=== PATIENT | male | born 1960 | race Caucasian/White ===

== ENCOUNTER 2023-07-11 15:50 | Emergency (ER) | payer OTHER, SELFPAY ==
[2023-07-11 15:54] VITALS: BP 146/96; PULSE 71; RESP 20; TEMP 36.5; O2SAT 95; BMI 48.8
--- NOTE | 2023-07-11 16:05 | ED.EAR1 ---
HPI - Ear Problem General Chief complaint: Ear Stated complaint: piece of ear piece stuck in ear Time Seen by Provider: 07/11/23 15:51 Source: patient Mode of arrival: walk-in History of Present Illness HPI Narrative: patient is a 63-year-old male presents wwith concerns of foreign body in the right ear. Patient states he was removing his hearing aid in the silicone applicator goes in the ear canal came dislodged. Patient's thought she saw it on the tip of his year and then pushed in. Patient states he has had a fullness sensation in his ears for the past few days and is also had a history of cerumen impaction. Denies any fevers or chills. Patient states the symptoms are affecting his PTSD. Patient appears in no distress, denies ear pain, denies fever or chills. MD Complaint: Denies ear pain Location: right ear Context: Denies recent illness Treatment prior to arrival: Reports none ( tried to remove. ) Related Data Previous Rx's Medication Instructions Recorded fluticasone propionate 50 2 spray intranasal DAILY #16 grams 07/11/23 mcg/actuation nasal spray,suspension (Flonase Allergy Relief) Allergies Allergy/AdvReac Type Severity Reaction Status Date / Time No Known Drug Allergies Allergy Verified 07/11/23 15:57 Review of Systems ROS Constitutional Denies: fever, chills or change in weight Ears, nose, mouth, and throat Denies: throat pain or neck pain Cardiovascular Denies: chest pain Respiratory Denies: shortness of breath or cough Gastrointestinal Denies: abdominal pain or nausea Musculoskeletal Denies: back pain or neck pain Integumentary/Breast Denies: rash or itching Neurological Denies: headache Psychiatric Denies: anxiety or mood swings Endocrine Denies: excessive urination Exam Narrative Exam Narrative: Nurses notes and vital signs reviewed and patient is not hypoxic. General: The patient appears well and in no apparent distress. Patient is resting comfortably on cart. Skin: Warm, dry, no pallor noted. No evidence of rash Head: Normocephalic, atraumatic. Neck: Supple, trachea mid-line, no tenderness, no lymphadenopathy Eye: Pupils are equal, round and reactive to light, EOMI Ears, Nose, Mouth, and Throat: TM are clear, normal light reflex,trace cerumen bilateral canals, no evidence of impaction. Tympanic membrane clearly visualized without evidence of foreign body. No auricle or tragal tenderness. Patient's cerumen was to the outermost one 3rd of the canal. Patient has slight dry skin to the antihelix. No evidence of erythema. oral mucosa is moist, no posterior oropharynx erythema or hypertrophy, uvula is mid-line Cardiovascular: Regular Rate and Rhythm Respiratory: Patient is in no distress, no accessory muscle use, lungs are clear to auscultation, no wheezing, rales or rhonchi. Neurological: A&O x4 Psychiatric: Cooperative Constitutional Vital Signs, click to edit/add: Last Vital Signs Temp 97.7 F 07/11/23 15:54 Pulse 71 07/11/23 15:54 Resp 07/11/23 15:54 BP 146/96 H 07/11/23 15:54 Pulse Ox 95 07/11/23 15:54 O2 Del Method Room Air 07/11/23 15:54 Course Vital Signs Vital signs: Vital Signs Temperature 97.7 F 07/11/23 15:54 Pulse Rate 71 07/11/23 15:54 Respiratory Rate 07/11/23 15:54 Blood Pressure 146/96 H 07/11/23 15:54 Pulse Oximetry 95 07/11/23 15:54 Oxygen Delivery Method Room Air 07/11/23 15:54 Temperature 97.7 F 07/11/23 15:54 Pulse Rate 71 07/11/23 15:54 Respiratory Rate 07/11/23 15:54 Blood Pressure 146/96 H 07/11/23 15:54 Pulse Oximetry 95 07/11/23 15:54 Oxygen Delivery Method Room Air 07/11/23 15:54 Medical Decision Making MDM Narrative Medical decision making narrative: patient presented with fear form body in the right ear canal, multiple inspections without evidence of foreign body. Discussed his ear fullness sensation recommend Flonase two sprays at night continue with his current hydroxyzine which she takes for anxiety. Also has ALLERGY component. We discussed follow-up to ENT, the patient given local but states he follows with the [place] clinic. We discussed the cerumen in his ears not requiring any irrigation or treatment. Patient requested that I remove what I could see and a curet was used to carefully remove the outer most portion with no evidence of abrasion on inspection after removal. Patient was appreciative and had no further concerns or questions. The patient is to followup with primary care physician in next 2-3 days or to return to the emergency department should any of the signs or symptoms worsen or new symptoms develop. Patient had questions answered. The patient agrees with the following Diagnosis and Treatment plan and the patient will be discharged home. Discharge Plan Discharge Chief Complaint: Ear Clinical Impression: Eustachian tube disorder, Foreign body of ear, Excessive cerumen in right ear canal Patient Disposition: Home, Self-Care Time of Disposition Decision: 16:07 Condition: Good Prescriptions / Home Meds: New fluticasone propionate [Flonase Allergy Relief] 50 mcg/actuation spray,suspension 2 spray intranasal DAILY Qty: 16 0RF Rx Instructions: administer into each nostril Instructions: Ear Foreign Body (ED) Stand Alone Forms: Portal Instructions Referrals: Kristina Moreno MD [Physician] - 1 week
== END 2023-07-11 16:18 | disposition home or self-care (01) ==
PROVIDERS: Emergency Provider Emergency Medicine
DX: H93.8X1 Other specified disorders of right ear (principal); H69.81 Other specified disorders of Eustachian tube, right ear; F43.10 Post-traumatic stress disorder, unspecified; F41.9 Anxiety disorder, unspecified; Z79.899 Other long term (current) drug therapy; H61.21 Impacted cerumen, right ear
CPT/HCPCS: 99283

== ENCOUNTER 2024-09-09 18:08 | Emergency (ER) | payer OTHER, SELFPAY ==
[2024-09-09] VITALS (19 sets, daily range): BP systolic 139; BP diastolic 86; PULSE 63–76; TEMP 36.8; O2SAT 97; BMI 48.8
--- NOTE | 2024-09-09 18:35 | XR_ITS ---
[address] [address] Patient Name: GERALDINE BUSTILLO MRN: [id number] date: 1960 Sex: M Assigned Patient Location: ER Current Patient Location: ED.MAIN Accession/Order Number: [id number] Exam Date: 09/09/2024 18:45 Report Date: 09/09/2024 19:46 At the request of: GARY CARRASCO Procedure: XR chest 2V EXAM: XR chest 2V HISTORY: chest pain COMPARISON: 07/23/2022 TECHNIQUE: Upright PA and lateral chest x-ray FINDINGS: The heart is not enlarged and the vasculature is not distended. No acute infiltrate, effusion or pneumothorax is identified. The right-sided PICC line has been removed. The osseous structures are grossly intact. XR/XR chest 2V IMPRESSION: No acute infiltrate or evidence of cardiac decompensation. Except for removal of the PICC line, the overall appearance of the chest is essentially unchanged. Electronically authenticated by: JAMARCUS ALEJO Date: 09/09/2024 19:46
--- NOTE | 2024-09-09 18:35 | ECG_ITS ---
[facility] Test Date: 2024-09-09 Pat Name: GERALDINE BUSTILLO Department: Room: - Gender: Male Director Mba: : 1960 Requested By: JOE HAQ Order Number: [id number] Reading MD: JOE HAQ Measurements Intervals [place] Rate: 66 P: 35 MS: 182 QRS: 48 QRSD: 92 T: 46 QT: 414 QTc: 427 Interpretive Statements 1100 Sinus rhythm 8102 Low QRS voltage in chest leads 9120 atypical ECG No previous ECG available for comparison Electronically Signed On 09-10-2024 5:03:13 EST by JOE HAQ
--- NOTE | 2024-09-09 18:38 | ED.GENADUL1 ---
HPI HPI - General Adult General Chief complaint: Chest Pain Stated complaint: chest pain, flu shot today Time Seen by Provider: 09/09/24 18:28 Source: patient and family Mode of arrival: walk-in Limitations: no limitations History of Present Illness HPI narrative: Patient presented to the emergency department for evaluation of chest pain. Patient states approximately 90 minutes ago he had acute onset of chest pain. Patient states it was in the central chest, felt like a stabbing sensation. Patient states that he felt the same time in the right side of his neck as well as the left side of his neck. States it felt like a stabbing sensation. No radiation to the back, no shortness of breath, nausea, vomiting, diaphoresis. No radiation through the back around to the back. No pain in the stomach. Patient states that he had a flu shot today and thought it was related to that. Patient states that by now the pain is fully resolved, it was constantly there for approximately 90 minutes. Nothing made it better or worse. Patient states that he did take 2 baby aspirin today. No other complaints at this time. Patient states that he has no family history of cardiac disease, does not drink, smoke, do any drugs, no family history of cardiac disease of unknown or first-degree relatives. States he has a history of lymphoma and a brain tumor, he was cleared 2 years ago. Related Data Home Medications ?Medication ?Instructions ?Recorded ?Confirmed fluoxetine 90 mg capsule,delayed 90 mg PO DAILY 09/09/24 09/09/24 release omeprazole 40 mg capsule,delayed 40 mg PO DAILY 09/09/24 09/09/24 release propranolol 20 mg tablet 20 mg PO DAILY 09/09/24 09/09/24 trazodone 150 mg tablet 150 mg PO DAILY 09/09/24 09/09/24 Previous Rx's ?Medication ?Instructions ?Recorded fluticasone propionate 50 2 spray intranasal DAILY #16 grams 07/11/23 mcg/actuation nasal spray,suspension (Flonase Allergy Relief) Allergies Allergy/AdvReac Type Severity Reaction Status Date / Time No Known Drug Allergies Allergy Verified 07/11/23 15:57 Opioid HPI Opioid Management Most Recent Opioid Data: No Data to Display Review of Systems ROS Narrative Negative unless otherwise stated in HPI PFSH PFSH Medical History (Updated 09/09/24 @ 18:41 by Estrada Hua MD) Depression ?F32.A - Depression, unspecified (ICD-10) Occasional tremors ?R25.1 - Tremor, unspecified (ICD-10) Lymphoma in remission ?C85.9A - Non-Hodgkin lymphoma, unspecified, in remission (ICD-10) Surgical History (Updated 09/09/24 @ 18:26 by Anneliese Loco RN) History of ankle surgery ?Z98.890 - Other specified postprocedural states (ICD-10) Social History Little interest or pleasure in doing things: not at all Feeling down, depressed, or hopeless: not at all Exam Narrative Exam Narrative: General: NAD, AAOx3, no distress Neck: No carotid bruit, no tenderness or pain was elicited Respiratory: respiratory effort normal, speaks in full sentences, no tripod position, no accessory muscle use. Lungs clear to auscultation without rhonchi, wheezes, rales, reproducible left chest wall pain with palpation over the mid sternum Cardiac: Regular rate and rhythm, no edema, regular s1/s2, no m/g/r Abdomen: Soft, ND/NT. No evidence of fluid wave. No pulsatile masses on exam, rebound tenderness, Hilario sign or pain over Mcburney's point. Constitutional Vital Signs, click to edit/add: Last Vital Signs Temp 98.3 F 09/09/24 18:17 Pulse 69 09/09/24 18:17 Resp 20 09/09/24 18:17 BP 139/86 09/09/24 18:17 Pulse Ox 97 09/09/24 18:17 O2 Del Method Room Air 09/09/24 18:17 Course Vital Signs Vital signs: Vital Signs Temperature 98.3 F 09/09/24 18:17 Pulse Rate 69 09/09/24 18:17 Respiratory Rate 20 09/09/24 18:17 Blood Pressure 139/86 09/09/24 18:17 Pulse Oximetry 97 09/09/24 18:17 Oxygen Delivery Method Room Air 09/09/24 18:17 Temperature 98.3 F 09/09/24 18:17 Pulse Rate 69 09/09/24 18:17 Respiratory Rate 20 09/09/24 18:17 Blood Pressure 139/86 09/09/24 18:17 Pulse Oximetry 97 09/09/24 18:17 Oxygen Delivery Method Room Air 09/09/24 18:17 Medical Decision Making [facility] Narrative Medical decision making narrative: [facility] Patient with history as above presented with chest pain. History obtained from patient. Patient was nontoxic, stable. Ambulatory. Exam as above. EKG reviewed. Labs reviewed. Independently reviewed imaging. Reviewed external records. Differential diagnosis considered. Overall presentation is consistent with atypical chest pain 1900 patient was signed out at normal change of shift pending full patient Discharge Plan Discharge Patient Disposition: Still a Patient
[2024-09-09] MEDS: ASPIRIN 81 MG TAB.CHEW 162 MG PO (19:04)
[2024-09-09 19:18] LABS: Basophils Percent Auto 0.5 % (0.2-2.0); Eosinophils Absolute Auto 0.2 10^3/uL (0.0-0.7); Eosinophils Percent Auto 2.4 % (0.9-7.0); Hematocrit 42.1 % (42.0-54.0); Hemoglobin 14.1 g/dL (14.0-18.0); Immature Granulocytes Abs Auto 0.04 10^3/uL (0.00-0.03); Immature Granulocytes Pct Auto 0.5 % (0.0-0.5); Lymphocytes Absolute Auto 2.3 10^3/uL (1.2-3.8); Lymphocytes Percent Auto 26.3 % (20.5-60.0); Mean Corpuscular HGB Conc 33.5 g/dL (29.9-35.2); Mean Corpuscular Hemoglobin 30.9 pg (25.9-34.0); Mean Corpuscular Volume 92.1 fL (80.0-94.0); Mean Platelet Volume 9.1 fL (9.5-13.5); Monocytes Absolute Auto 0.8 10^3/uL (0.3-0.8); Monocytes Percent Auto 9.4 % (1.7-12.0); Neutrophils Absolute Auto 5.4 10^3/uL (1.4-6.5); Neutrophils Percent Auto 60.9 % (43.0-75.0); Platelet Count 241 10^3/uL (150-450); Red Blood Count 4.57 10^6/uL (4.70-6.10); White Blood Count 8.8 10^3/uL (4.0-11.0)
[2024-09-09 19:31] LABS: Anion Gap 15.4; BUN Creatinine Ratio 14.4; Calcium 9.4 mg/dL (8.5-10.1); Carbon Dioxide 23.9 mmol/L (21.0-32.0); Chloride 109 mmol/L (98-107); Estimated GFR (African America >60 (>=60 mL/min/1.73m^2); Estimated GFR (Non-African Ame >60 (>=60 mL/min/1.73m^2); Glucose 141 mg/dL (74-106); Potassium 4.3 mmol/L (3.5-5.1); Sodium 144 mmol/L (136-145); Troponin I High Sensitivity 5.9 pg/mL (4.0-76.1)
[2024-09-09 20:58] LABS: Troponin I High Sensitivity 6.6 pg/mL (4.0-76.1)
--- NOTE | 2024-09-09 21:05 | ED.CHESTPAI1 ---
HPI - Chest Pain General Chief Complaint: Chest Pain Stated Complaint: chest pain, flu shot today Time Seen by Provider: 09/09/24 18:28 Source: patient and family Mode of arrival: walk-in Limitations: no limitations History of Present Illness HPI narrative: 64-year-old male presented to the emergency department and was initially seen by Dr. Hua and signed out to me after discussing the case with him thoroughly. Please see his full history and physical exam. Related Data Home Medications ?Medication ?Instructions ?Recorded ?Confirmed fluoxetine 90 mg capsule,delayed 90 mg PO DAILY 09/09/24 09/09/24 release omeprazole 40 mg capsule,delayed 40 mg PO DAILY 09/09/24 09/09/24 release propranolol 20 mg tablet 20 mg PO DAILY 09/09/24 09/09/24 trazodone 150 mg tablet 150 mg PO DAILY 09/09/24 09/09/24 Previous Rx's ?Medication ?Instructions ?Recorded fluticasone propionate 50 2 spray intranasal DAILY #16 grams 07/11/23 mcg/actuation nasal spray,suspension (Flonase Allergy Relief) Allergies Allergy/AdvReac Type Severity Reaction Status Date / Time No Known Drug Allergies Allergy Verified 07/11/23 15:57 [facility] Medical History (Updated 09/09/24 @ 18:41 by Estrada Hua MD) Depression ?F32.A - Depression, unspecified (ICD-10) Occasional tremors ?R25.1 - Tremor, unspecified (ICD-10) Lymphoma in remission ?C85.9A - Non-Hodgkin lymphoma, unspecified, in remission (ICD-10) Surgical History (Updated 09/09/24 @ 18:26 by Anneliese Loco RN) History of ankle surgery ?Z98.890 - Other specified postprocedural states (ICD-10) Social History Little interest or pleasure in doing things: not at all Feeling down, depressed, or hopeless: not at all Exam Constitutional Vital Signs, click to edit/add: Last Vital Signs Temp 98.3 F 09/09/24 18:17 Pulse 63 09/09/24 19:01 Resp 15 09/09/24 19:01 BP 139/86 09/09/24 18:20 Pulse Ox 97 09/09/24 18:20 O2 Del Method Room Air 09/09/24 18:17 Course Vital Signs Vital signs: Vital Signs Temperature 98.3 F 09/09/24 18:17 Pulse Rate 69 09/09/24 18:17 Respiratory Rate 20 09/09/24 18:17 Blood Pressure 139/86 09/09/24 18:17 Pulse Oximetry 97 09/09/24 18:17 Oxygen Delivery Method Room Air 09/09/24 18:17 Temperature 98.3 F 09/09/24 18:17 Pulse Rate 63 09/09/24 19:01 Respiratory Rate 15 09/09/24 19:01 Blood Pressure 139/86 09/09/24 18:20 Pulse Oximetry 97 09/09/24 18:20 Oxygen Delivery Method Room Air 09/09/24 18:17 MDM - Chest Pain MDM Narrative Medical decision making narrative: His workup is negative including 2 sets of troponin and he remains asymptomatic. He is able to be discharged home. Follow-up with PCP. Differential Diagnosis Differential diagnosis: Likely pneumothorax, unstable angina pectoris, atypical chest pain, st elevation myocardial infarction and chest pain Lab Data Attestation: I reviewed the patient's lab results. Labs: Lab Results 09/09/24 09/09/24 Range/Units 18:36 20:29 WBC 8.8 (4.0-11.0) 10^3/uL RBC 4.57 L (4.70-6.10) 10^6/uL Hgb 14.1 (14.0-18.0) g/dL Hct 42.1 (42.0-54.0) % MCV 92.1 (80.0-94.0) fL MCH 30.9 (25.9-34.0) pg MCHC 33.5 (29.9-35.2) g/dL RDW 15.0 (11.0-15.0) % Plt Count 241 (150-450) 10^3/uL MPV 9.1 L (9.5-13.5) fL Neut % (Auto) 60.9 (43.0-75.0) % Lymph % (Auto) 26.3 (20.5-60.0) % [place] % (Auto) 9.4 (1.7-12.0) % Eos % (Auto) 2.4 (0.9-7.0) % Baso % (Auto) 0.5 (0.2-2.0) % Neut # (Auto) 5.4 (1.4-6.5) 10^3/uL Lymph # (Auto) 2.3 (1.2-3.8) 10^3/uL [place] # (Auto) 0.8 (0.3-0.8) 10^3/uL Eos # (Auto) 0.2 (0.0-0.7) 10^3/uL Baso # (Auto) 0.0 (0.0-0.1) 10^3/uL Abs Immat Gran (auto) 0.04 H (0.00-0.03) 10^3/uL Imm/Tot Granulo (auto) 0.5 (0.0-0.5) % Sodium 144 (136-145) mmol/L Potassium 4.3 (3.5-5.1) mmol/L Chloride 109 H (98-107) mmol/L Carbon Dioxide 23.9 (21.0-32.0) mmol/L Anion Gap 15.4 BUN 13.0 (7.0-18.0) mg/dL Creatinine 0.90 (0.70-1.30) mg/dL Est GFR ( Amer) >60 (>=60 mL/min/1.73m^2) Est GFR (Non-Af Amer) >60 (>=60 mL/min/1.73m^2) BUN/Creatinine Ratio 14.4 Glucose 141 H (74-106) mg/dL Calcium 9.4 (8.5-10.1) mg/dL Troponin I High Sens 5.9 6.6 (4.0-76.1) pg/mL Imaging Data Chest x-ray: Radiologist's impression: ITS Impressions Chest X-Ray 09/09/24 18:35 IMPRESSION: No acute infiltrate or evidence of cardiac decompensation. Except for removal of the PICC line, the overall appearance of the chest is essentially unchanged. Electronically authenticated by: JAMARCUS ALEJO Date: 09/09/2024 19:46 ECG Data Attestation: I personally reviewed and interpreted this ECG as follows: (EKG on my interpretation shows normal sinus rhythm with a rate of 66 and no acute change.) Heart Score History: Slightly/Non-Suspicious ECG: Normal Age: >45-<65 years Risk Factors: 1 or 2 Risk Factors Troponin: <Normal Limit Total Heart Score Recommendations & Risks:: 2 Discharge Plan Discharge Chief Complaint: Chest Pain Clinical Impression: Chest pain Patient Disposition: Home, Self-Care Time of Disposition Decision: 21:04 Condition: Good Mode of Transportation: Private Vehicle Prescriptions / Home Meds: No Action fluticasone propionate [Flonase Allergy Relief] 50 mcg/actuation spray,suspension 2 spray intranasal DAILY Qty: 16 0RF Rx Instructions: administer into each nostril propranolol 20 mg tablet 20 mg PO DAILY trazodone 150 mg tablet 150 mg PO DAILY omeprazole 40 mg capsule,delayed release(DR/EC) 40 mg PO DAILY fluoxetine 90 mg capsule,delayed release(DR/EC) 90 mg PO DAILY Print Language: Icelandic Instructions: Chest Pain (ED) Referrals: Physician,Non-Staff, MD [Primary Care Provider] - 1 week
== END 2024-09-09 21:13 | disposition home or self-care (01) ==
PROVIDERS: Emergency Medicine; Emergency Provider Emergency Medicine
DX: R07.9 Chest pain, unspecified (principal); Z85.72 Personal history of non-Hodgkin lymphomas
CPT/HCPCS: 36415; 71046; 80048; 84484; 85025; 93005; 99285

== ENCOUNTER 2024-12-11 21:16 | Emergency (ER) | payer OTHER, SELFPAY ==
[2024-12-11 21:19] VITALS: BP 151/86; PULSE 63; TEMP 36.6; O2SAT 96; BMI 51.5
--- NOTE | 2024-12-11 21:31 | ECG_ITS ---
[facility] Test Date: 2024-12-11 Pat Name: GERALDINE BUSTILLO Department: Room: - Gender: Male [employer]: : 1960 Requested By: Order Number: [id number] Reading MD: GILDA HALL Measurements Intervals [place] Rate: 56 P: 61 [place]: 180 QRS: 49 QRSD: 98 T: 46 QT: 420 QTc: 410 Interpretive Statements 1100 Sinus rhythm 9110 normal ECG Compared to ECG 09/09/2024 18:22:30 No significant changes Electronically Signed On 12-12-2024 16:34:49 EST by GILDA HALL
--- NOTE | 2024-12-11 21:31 | CT_ITS ---
The [address] [address] Patient Name: GERALDINE BUSTILLO MRN: [id number] date: 1960 Sex: M Assigned Patient Location: ER Current Patient Location: Accession/Order Number: [id number] Exam Date: 12/11/2024 23:30 Report Date: 12/12/2024 01:29 At the request of: TORSTEN SANCHEZ Procedure: CT abdomen pelvis w con EXAM: CT abdomen pelvis w con HISTORY: Abdominal pain COMPARISON: CT chest, abdomen, and pelvis examination dated 04/05/2024. TECHNIQUE: Axial CT images through the abdomen and pelvis were obtained after the intravenous administration of contrast. Coronal and sagittal reformats were obtained. Dose reduction techniques were achieved by using automated exposure control and/or adjustment of mA and/or kV according to patient size and/or use of iterative reconstruction technique. FINDINGS: There is mild left basilar atelectasis. Abdomen: The liver and spleen enhance homogeneously without focal lesion. There is no intra or extrahepatic biliary duct dilatation. The gallbladder is unremarkable. There is a left renal cyst. There is a 0.3 cm nonobstructive right renal calculus. The pancreas, adrenal glands, and bowel loops, including the appendix, are unremarkable. There is no mesenteric or retroperitoneal lymphadenopathy. Pelvis: The bladder and rectum are unremarkable. There is no iliac or inguinal lymphadenopathy. There is prostatomegaly. There is mild atherosclerotic disease. Bone windows show no aggressive osseous lesions. CT/CT abdomen pelvis w con IMPRESSION: 1. No specific etiology identified to explain the patient's abdominal pain. 2. Nonobstructive right renal calculus. 3. Normal appendix. 4. Prostatomegaly. Electronically authenticated by: Aditya GRANADOS Date: 12/12/2024 01:29
--- NOTE | 2024-12-11 21:33 | ED.ABDPAIN1 ---
HPI - Abdominal Pain General Chief Complaint: Abdominal Pain Stated Complaint: ABDOMINAL PAIN, SIDE BLOATING Time Seen by Provider: 12/11/24 21:25 Source: patient Mode of arrival: walk-in Limitations: no limitations History of Present Illness HPI narrative: Patient is a 64-year-old male with a remote history of lymphoma in remission who presents to the ER for evaluation of left-sided abdominal pain and bloating that began today. He states he has a longstanding history for several years of similar symptoms since he had chemotherapy related to the lymphoma. He does not currently receive any chemotherapy or radiation and has not for several years. He states today he has been nauseous with no vomiting. He reports some loose stool but he did take prune juice earlier today. He used Bentyl prior to arrival with some improvement but reports significant pressure in the left side of the abdomen rating to the left flank. He has not had any fevers or upper respiratory symptoms. He denies any urinary symptoms. He is concerned he may have a hernia in the left abdomen causing the pressure and swelling. He states he has had a previous endoscopy, colonoscopy and MRI of his abdomen related to the [facility] Related Data Home Medications ?Medication ?Instructions ?Recorded ?Confirmed fluoxetine 90 mg capsule,delayed 100 mg PO DAILY 09/09/24 12/11/24 release omeprazole 40 mg capsule,delayed 40 mg PO DAILY 09/09/24 12/11/24 release propranolol 20 mg tablet 20 mg PO DAILY 09/09/24 12/11/24 trazodone 150 mg tablet 150 mg PO DAILY 09/09/24 12/11/24 hydroxyzine HCl 25 mg tablet 25 mg PO BID PRN anxiety 12/11/24 12/11/24 melatonin 3 mg capsule 6 mg PO DAILY PRN sleep 12/11/24 12/11/24 Previous Rx's ?Medication ?Instructions ?Recorded fluticasone propionate 50 2 spray intranasal DAILY #16 grams 07/11/23 mcg/actuation nasal spray,suspension (Flonase Allergy Relief) Allergies Allergy/AdvReac Type Severity Reaction Status Date / Time No Known Drug Allergies Allergy Verified 12/11/24 21:25 Review of Systems ROS Constitutional Denies: fever or chills Ears, nose, mouth, and throat Denies: throat pain or nasal congestion Cardiovascular Denies: chest pain Respiratory Denies: cough Gastrointestinal Reports: abdominal pain, nausea and diarrhea; Denies: vomiting or blood in stool Integumentary/Breast Denies: rash Neurological Denies: numbness in extremities or weakness in extremities Hematologic/Lymphatic Denies: easy bruising or easy bleeding PFSH [facility] Medical History (Updated 12/11/24 @ 21:36 by ERIC Sun) Depression ?F32.A - Depression, unspecified (ICD-10) Occasional tremors ?R25.1 - Tremor, unspecified (ICD-10) Lymphoma in remission ?C85.9A - Non-Hodgkin lymphoma, unspecified, in remission (ICD-10) Surgical History (Updated 09/09/24 @ 18:26 by Anneliese Loco RN) History of ankle surgery ?Z98.890 - Other specified postprocedural states (ICD-10) Social History Little interest or pleasure in doing things: not at all Feeling down, depressed, or hopeless: not at all Exam Narrative Exam Narrative: Gen.: Awake, alert, in no distress Head: Normocephalic, atraumatic ENT: Moist mucous membranes Respiratory: No respiratory distress, lungs clear bilaterally Cardio: Regular rate and rhythm Gastrointestinal: Abdomen is soft, obese and tender to palpation of the left upper quadrant. No palpable hernia. No guarding or rebound. Extremities: Moves extremities equally Psych: Normal mood and affect Neuro: No focal neuro deficit Skin: Warm, dry, intact Constitutional Vital Signs, click to edit/add: Last Vital Signs Temp 97.9 F 12/11/24 21:19 Pulse 63 12/11/24 21:19 Resp 18 12/11/24 21:19 BP 151/86 H 12/11/24 21:19 Pulse Ox 96 12/11/24 21:19 O2 Del Method Room Air 12/11/24 21:19 Course Vital Signs Vital signs: Vital Signs Temperature 97.9 F 12/11/24 21:19 Pulse Rate 63 12/11/24 21:19 Respiratory Rate 18 12/11/24 21:19 Blood Pressure 151/86 H 12/11/24 21:19 Pulse Oximetry 96 12/11/24 21:19 Oxygen Delivery Method Room Air 12/11/24 21:19 Temperature 97.9 F 12/11/24 21:19 Pulse Rate 63 12/11/24 21:19 Respiratory Rate 18 12/11/24 21:19 Blood Pressure 151/86 H 12/11/24 21:19 Pulse Oximetry 96 12/11/24 21:19 Oxygen Delivery Method Room Air 12/11/24 21:19 MDM - Abdominal Pain MDM Narrative Medical decision making narrative: 2134: Patient was evaluated, labs and CT ordered with EKG, urine testing and medications for comfort. Diagnostics are all pending at this time and case is turned over to attending physician for reevaluation and disposition. SHARED APC VISIT, PHYSICIAN ATTESTATION: [id number] I performed a substantive part of the MDM during the patient?s E/M visit. I personally evaluated and examined the patient. I personally made or approved the documented management plan and acknowledge its risk of complications. Medical Records Attestation: I reviewed the patient's medical records. Lab Data Attestation: I reviewed the patient's lab results. Discharge Plan Discharge Chief Complaint: Abdominal Pain Clinical Impression: Abdominal pain Patient Disposition: Still a Patient Prescriptions / Home Meds: No Action fluticasone propionate [Flonase Allergy Relief] 50 mcg/actuation spray,suspension 2 spray intranasal DAILY Qty: 16 0RF Rx Instructions: administer into each nostril propranolol 20 mg tablet 20 mg PO DAILY trazodone 150 mg tablet 150 mg PO DAILY omeprazole 40 mg capsule,delayed release(DR/EC) 40 mg PO DAILY fluoxetine 90 mg capsule,delayed release(DR/EC) 100 mg PO DAILY melatonin 3 mg capsule 6 mg PO DAILY PRN (Reason: sleep) hydroxyzine HCl 25 mg tablet 25 mg PO BID PRN (Reason: anxiety) Print Language: Yoruba Referrals: Physician,Non-Staff, MD [Primary Care Provider] - 1 week
[2024-12-11] MEDS: HYDROMORPHONE HCL 0.5 MG/0.5 ML SYRINGE IV (21:59)
[2024-12-11] MEDS: ONDANSETRON PF 4 MG/2 ML VIAL IV (21:59)
[2024-12-11] MEDS: FAMOTIDINE/PF 20 MG/2 ML VIAL IV (21:59)
[2024-12-11 22:00] LABS: Basophils Absolute Auto 0.1 10^3/uL (0.0-0.1); Basophils Percent Auto 0.6 % (0.2-2.0); Eosinophils Absolute Auto 0.1 10^3/uL (0.0-0.7); Eosinophils Percent Auto 1.6 % (0.9-7.0); Hematocrit 42.6 % (42.0-54.0); Hemoglobin 14.7 g/dL (14.0-18.0); Immature Granulocytes Abs Auto 0.02 10^3/uL (0.00-0.03); Immature Granulocytes Pct Auto 0.2 % (0.0-0.5); Lymphocytes Absolute Auto 2.1 10^3/uL (1.2-3.8); Lymphocytes Percent Auto 25.9 % (20.5-60.0); Mean Corpuscular HGB Conc 34.5 g/dL (29.9-35.2); Mean Corpuscular Hemoglobin 31.4 pg (25.9-34.0); Mean Platelet Volume 9.4 fL (9.5-13.5); Monocytes Absolute Auto 0.7 10^3/uL (0.3-0.8); Neutrophils Absolute Auto 5.1 10^3/uL (1.4-6.5); Neutrophils Percent Auto 62.7 % (43.0-75.0); Platelet Count 232 10^3/uL (150-450); Red Blood Count 4.68 10^6/uL (4.70-6.10); Red Cell Distribution Width 14.4 % (11.0-15.0); White Blood Count 8.2 10^3/uL (4.0-11.0)
[2024-12-11 22:13] LABS: Prothrombin Time 10.6 sec (9.0-11.6)
[2024-12-11 22:17] LABS: Anion Gap 13.9
[2024-12-11 22:19] LABS: Alanine Aminotransferase 45 U/L (16-63); Albumin Level 3.6 g/dL (3.4-5.0); Alkaline Phosphatase 64 U/L (46-116); Aspartate Amino Transferase 30 U/L (15-37); BUN Creatinine Ratio 11.8; Bilirubin Total 0.4 mg/dL (0.2-1.0); Calcium 9.8 mg/dL (8.5-10.1); Carbon Dioxide 25.4 mmol/L (21.0-32.0); Chloride 103 mmol/L (98-107); Estimated GFR (African America >60 (>=60 mL/min/1.73m^2); Estimated GFR (Non-African Ame >60 (>=60 mL/min/1.73m^2); Globulin 3.5 g/dL; Glucose 109 mg/dL (74-106); Lactate/Lactic Acid 1.2 mmol/L (0.4-2.0); Potassium 4.3 mmol/L (3.5-5.1); Sodium 138 mmol/L (136-145); Total Protein 7.1 g/dL (6.4-8.2); Troponin I High Sensitivity 6.7 pg/mL (4.0-76.1)
[2024-12-11 22:29] LABS: Bilirubin Urine NEGATIVE (NEGATIVE); Blood Urine SMALL (NEGATIVE); Clarity Urine CLEAR (CLEAR); Color Urine YELLOW (YELLOW); Glucose Urine UA NEGATIVE (NEGATIVE); Ketones Urine 15 mg/dL (NEGATIVE); Leukocyte Esterase Urine NEGATIVE (NEGATIVE); Nitrite Urine NEGATIVE (NEGATIVE); Protein Urine TRACE mg/dL (NEG/TRACE); Specific Gravity Urine 1.025 (1.005-1.025)
[2024-12-11 22:38] LABS: Bacteria Urine TRACE #/HPF (NONE SEEN); Cast Seen? SEEN #/LPF (NONE SEEN); Crystals Seen? None Seen #/HPF (None Seen); Hyaline Casts Urine RARE; Mucus Urine MODERATE (NONE SEEN); RBC Urine 0-2 #/HPF (0-2); Squamous Epithelial Cell Urine FEW #/LPF (NONE/RARE); Urine Culture Indicated NO
[2024-12-11 23:06] VITALS: BP 128/83; PULSE 68; O2SAT 94
[2024-12-12 00:20] VITALS: BP 130/64; PULSE 53; O2SAT 95
[2024-12-12 01:51] VITALS: BP 138/72; PULSE 55; O2SAT 97
== END 2024-12-12 01:55 | disposition home or self-care (01) ==
PROVIDERS: Physician Assistant; Emergency Provider Student in an Organized Health Care Education/Training Program
DX: R10.9 Unspecified abdominal pain (principal); G89.29 Other chronic pain; K43.9 Ventral hernia without obstruction or gangrene; C85.9A Non-Hodgkin lymphoma, unspecified, in remission; Z92.21 Personal history of antineoplastic chemotherapy
CPT/HCPCS: 36415; 74177; 80053; 81001; 83605; 83690; 84484; 85025; 85610; 93005; 96374; 96375; 99285; J1171; J2405; J3490; Q9967

== ENCOUNTER 2025-04-06 13:36 | Outpatient (RCR) | payer MEDICARE, SELFPAY | END 2025-05-18 14:03 | disposition home or self-care (01) | LOC: PT 13:36 | PROVIDERS: Visit Provider Family Medicine | DX: R26.89 Other abnormalities of gait and mobility (principal) | CPT/HCPCS: 97110; 97112; 97163 ==

== ENCOUNTER 2025-06-17 18:36 | Inpatient (IN) | payer MEDICARE, SELFPAY ==
[2025-06-17] VITALS (8 sets, daily range): BP systolic 110–153; BP diastolic 77–83; PULSE 75–108; TEMP 37.3–38.3; O2SAT 94–96; BMI 48.5; BMI 50.4
--- NOTE | 2025-06-17 18:46 | ECG_ITS ---
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
--- NOTE | 2025-06-17 19:34 | ED_ITS ---
HPI HPI - General Adult General Chief complaint: Fall Stated complaint: WEAKNESS Time Seen by Provider: 06/17/25 19:27 Source: patient Mode of arrival: ambulance Limitations: no limitations History of Present Illness HPI narrative: past history of lymphoma. Believes he is in remission. Has follow up appointment next week with oncology. Chronic abdominal pain for at least the past 2 years treated with gasx and bentyl. abdominal pain is mild now. Ill past 3 days with weakness. No definite fever. Seen by PCP today and diagnosed with UTI. Admits to urinary frequency and urgency and not able to hold his urine. 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 He got home from his PCP appointment and slipped down to the floor. No injury but not able to get up and brought here by Squad. No nausea or vomiting. No flank pain or chills Related Data Home Medications ?Medication ?Instructions ?Recorded ?Confirmed omeprazole 40 mg capsule,delayed 40 mg PO DAILY 06/17/25 release propranolol 20 mg tablet 20 mg PO Q12H 09/09/2406/17 trazodone 150 mg tablet 150 mg PO DAILY 09/09/24 hydroxyzine HCl 25 mg tablet 25 mg PO BID PRN anxiety 12/11/24 06/17/25 melatonin 3 mg capsule 6 mg PO DAILY sleep 12/11/24 06/18/25 fluoxetine 40 mg capsule 80 mg PO DAILY 06/18/2505/28 fluticasone propionate 50 2 spray intranasal DAILY PRN 06/18/25 06/18/25 mcg/actuation nasal allergy symptoms spray,suspension (Flonase Allergy Relief) Allergies Allergy/AdvReac Type Severity Reaction Status Date / Time No Known Drug Allergies Allergy Verified 06/17/25 18:41 Opioid HPI Opioid Management Most Recent Opioid Data: Last Pain Scale 0 Today, 18:13 Last Pain Assessment 06/17/25, 23:00 Last MAR Pain Assessment 06/18/25, 01:13 Last ORT Total Score 0 06/17/25, 23:00 Last ORT Risk Category Low Risk 06/17/25, 23:00 Review of Systems ROS Status of ROS 10 or more systems reviewed and unremark able except as noted in history and below [facility] Medical History (Updated 06/19/25 @ 19:20 by Rivera Whitney MD) Depression ?F32.A - Depression, unspecified (ICD-10) Occasional tremors ?R25.1 - Tremor, unspecified (ICD-10) Lymphoma in remission ?C85.9A - Non-Hodgkin lymphoma, unspecified, in remission (ICD-10) Surgical History History of ankle surgery ?Z98.890 - Other specified postprocedural states (ICD-10) Family History (Updated 06/18/25 @ 00:48 by Beau Whitaker, RN) Father Cancer of prostate Sister Cancer of breast, female Social History Highest level of school completed/degree received: some college, no degree Little interest or pleasure in doing things: not at all Feeling down, depressed, or hopeless: not at all Exam Constitutional Vital Signs, click to edit/add: Last Vital Signs Temp 97.6 F 06/19/25 16:00 Pulse 58 L 06/19/25 16:00 Resp 18 06/19/25 16:00 BP 111/69 06/19/25 16:00 Pulse Ox 94 L 06/19/25 16:00 O2 Del Method Room Air 06/19/25 16:00 O2 Flow Rate 2 06/18/25 07:46 Common normals: no apparent distress, oriented x3, no limitations, healthy appearing, alert and well nourished [facility] Common normals: normocephalic and head/scalp atraumatic Eye Common normals: PERRL, EOMs intact bilaterally and conjunctivae normal Respiratory Common normals: normal respiratory effort, no retractions, no use of accessory muscles and clear to auscultation bilaterally Cardio Common normals: regular rate, regular rhythm, S1 normal heart sound and S2 normal heart sound GI Common normals: Normal to inspection, nondistended, normoactive bowel sounds present, soft to palpation and non-tender Extremity Common normals: normal to inspection and full ROM Neuro Common normals: oriented x3, CN's II-XII intact bilaterally, moves all extremities and no focal motor deficits Psych Appearance: grossly normal Course Vital Signs Vital signs: Vital Signs Temperature 99.1 F 06/17/25 18:41 Pulse Rate 108 H 06/17/25 18:41 Respiratory Rate 24 H 06/17/25 18:41 Blood Pressure 153/83 H 06/17/25 18:41 Pulse Oximetry 94 L 06/17/25 18:41 Temperature 97.6 F 06/19/25 16:00 Pulse Rate 58 L 06/19/25 16:00 Respiratory Rate 18 06/19/25 16:00 Blood Pressure 111/69 06/19/25 16:00 Pulse Oximetry 94 L 06/19/25 16:00 Oxygen Delivery Method Room Air 06/19/25 16:00 Oxygen Delivery Flow Rate 2 06/18/25 07:46 Medical Decision Making MDM Narrative Medical decision making narrative: morbidly obese male with past history of lymphoma. Presents with gen weakness. At home slipped down to the floor and not able to get up. Brought to ER by squad. Workup remarkable for sepsis and UTI. Patient hydrated in the department and given antibiotics. Discussed with the hospitalist and patient accepted for admission Lab Data Labs: Lab Results 06/17/25 06/17/25 Range/Units 19:55 20:04 WBC 18.0 H (4.0-11.0) 10^3/uL RBC 4.84 (4.70-6.10) 10^6/uL Hgb 15.2 (14.0-18.0) g/dL Hct 43.5 (42.0-54.0) % MCV 89.9 (80.0-94.0) fL MCH 31.4 (25.9-34.0) pg MCHC 34.9 (29.9-35.2) g/dL RDW 14.2 (11.0-15.0) % Plt Count 199 (150-450) 10^3/uL MPV 9.8 (9.5-13.5) fL Seg Neuts % (Manual) 85.0 H (43.0-75.0) Lymphocytes % (Manual) 6.0 L (20.5-60.0) % Monocytes % (Manual) 9.0 (1.7-12.0) % Eosinophils % (Manual) 0.0 L (0.9-7.0) % Basophils % (Manual) 0.0 L (0.2-2.0) % Neutrophils # (Manual) 15.30 H (1.4-6.5) 10^3/uL Lymphocytes # (Manual) 1.08 L (1.20-3.80) 10^3/uL Monocytes # (Manual) 1.62 H (0.30-0.80) 10^3/uL Eosinophils # (Manual) 0.00 (0.00-0.70) 10^3/uL Basophils # (Manual) 0.00 (0.00-0.10) 10^3/uL Sodium 137 (136-145) mmol/L Potassium 4.3 (3.5-5.1) mmol/L Chloride 104 (98-107) mmol/L Carbon Dioxide 21.6 (21.0-32.0) mmol/L Anion Gap 15.7 BUN 13.0 (7.0-18.0) mg/dL Creatinine 0.88 (0.70-1.30) mg/dL Est GFR ( Amer) >60 (>=60 mL/min/1.73m^2) Est GFR (Non-Af Amer) >60 (>=60 mL/min/1.73m^2) BUN/Creatinine Ratio 14.8 Glucose 135 H (74-106) mg/dL Lactate 2.6 H* (0.4-2.0) mmol/L Calcium 10.0 (8.5-10.1) mg/dL Urine Color Lt. yellow (YELLOW) Urine Clarity Cloudy A (CLEAR) Urine pH 8.0 (5.0-9.0) Ur Specific [place] 1.015 (1.005-1.025) Urine Protein Trace (NEG/TRACE) mg/dL Urine Glucose (UA) Negative (NEGATIVE) mg/dL Urine Ketones 40 A (NEGATIVE) mg/dL Urine Occult Blood Moderate A (NEGATIVE) Urine Nitrite Negative (NEGATIVE) Urine Bilirubin Negative (NEGATIVE) Urine Urobilinogen 1.0 (0.2-1.0) EU/dL Ur Leukocyte Esterase Moderate A (NEGATIVE) Urine RBC 2-5 A (0-2) #/HPF Urine WBC 75-100 A (NONE SEEN) #/HPF Ur Squamous Epith Cells Few A (NONE/RARE) #/LPF Urine Crystals None seen (None Seen) #/HPF Urine Bacteria Trace A (NONE SEEN) #/HPF Urine Casts None seen (NONE SEEN) #/LPF Urine Mucus None seen (NONE SEEN) Ur [place] Indicated[place] [place] Discharge Chief Complaint: Fall Clinical Impression: Sepsis, UTI (urinary tract infection) Patient Disposition: Admitted As Inpatient Discharge Date/Time: 06/17/25 23:07
[2025-06-17] MEDS: HYDROXYZINE PAMOATE 25 MG CAPSULE PO (20:02)
[2025-06-17] MEDS: 0.9 % SODIUM CHLORIDE 1,000 ML 999 ML IV (20:02)
[2025-06-17 20:22] LABS: Hematocrit 43.5 % (42.0-54.0); Hemoglobin 15.2 g/dL (14.0-18.0); Mean Corpuscular HGB Conc 34.9 g/dL (29.9-35.2); Mean Corpuscular Hemoglobin 31.4 pg (25.9-34.0); Mean Corpuscular Volume 89.9 fL (80.0-94.0); Platelet Count 199 10^3/uL (150-450); Red Blood Count 4.84 10^6/uL (4.70-6.10); White Blood Count 18.0 10^3/uL (4.0-11.0)
[2025-06-17 20:25] LABS: Glucose Urine UA NEGATIVE (NEGATIVE)
[2025-06-17 20:26] LABS: Anion Gap 15.7; Blood Urea Nitrogen 13.0 mg/dL (7.0-18.0); Calcium 10.0 mg/dL (8.5-10.1); Carbon Dioxide 21.6 mmol/L (21.0-32.0); Chloride 104 mmol/L (98-107); Estimated GFR (African America >60 (>=60 mL/min/1.73m^2); Estimated GFR (Non-African Ame >60 (>=60 mL/min/1.73m^2); Glucose 135 mg/dL (74-106); Potassium 4.3 mmol/L (3.5-5.1); Sodium 137 mmol/L (136-145)
[2025-06-17 20:40] LABS: Basophils Abs Manual 0.00 10^3/uL (0.00-0.10); Basophils Percent Manual 0.0 % (0.2-2.0); Eosinophils Absolute Manual 0.00 10^3/uL (0.00-0.70); Eosinophils Percent Manual 0.0 % (0.9-7.0); Lymphocytes Absolute Manual 1.08 10^3/uL (1.20-3.80); Lymphocytes Percent Manual 6.0 % (20.5-60.0); Monocytes Absolute Manual 1.62 10^3/uL (0.30-0.80); Monocytes Percent Manual 9.0 % (1.7-12.0); Segmented Neut Absolute Manual 15.30 10^3/uL (1.4-6.5); Segmented Neutrophils % Manual 85.0 (43.0-75.0)
[2025-06-17 20:42] LABS: Lactate/Lactic Acid 2.6 mmol/L (0.4-2.0)
[2025-06-17 20:50] LABS: Cast Seen? NONE SEEN #/LPF (NONE SEEN); Crystals Seen? None Seen #/HPF (None Seen); Urine Culture Indicated YES-FRMC
[2025-06-18] VITALS (71 sets, daily range): BP systolic 110–123; BP diastolic 62–77; PULSE 64–88; TEMP 36.3–38.5; O2SAT 85–98
[2025-06-18] MEDS: IMIPENEM/CILASTATIN SODIUM 1,000 MG in 0.9 % SODIUM CHLORIDE 250 ML 250 MG IV ×3 (01:13→16:52)
[2025-06-18] MEDS: IBUPROFEN 600 MG TABLET PO (01:13)
[2025-06-18] MEDS: PROPRANOLOL HCL 20 MG TABLET PO ×2 (01:17→09:36)
[2025-06-18 07:25] LABS: Hematocrit 39.6 % (42.0-54.0); Hemoglobin 13.3 g/dL (14.0-18.0); Immature Granulocytes Abs Auto 0.11 10^3/uL (0.00-0.03); Immature Granulocytes Pct Auto 0.6 % (0.0-0.5); Lymphocytes Absolute Auto 1.9 10^3/uL (1.2-3.8); Mean Corpuscular HGB Conc 33.6 g/dL (29.9-35.2); Mean Corpuscular Hemoglobin 30.5 pg (25.9-34.0); Mean Corpuscular Volume 90.8 fL (80.0-94.0); Platelet Count 190 10^3/uL (150-450); Red Blood Count 4.36 10^6/uL (4.70-6.10); White Blood Count 18.6 10^3/uL (4.0-11.0)
[2025-06-18 07:31] LABS: Lactate/Lactic Acid 0.9 mmol/L (0.4-2.0)
[2025-06-18 07:37] LABS: Anion Gap 13.0; Blood Urea Nitrogen 10.0 mg/dL (7.0-18.0); Calcium 9.4 mg/dL (8.5-10.1); Carbon Dioxide 23.5 mmol/L (21.0-32.0); Chloride 106 mmol/L (98-107); Estimated GFR (African America >60 (>=60 mL/min/1.73m^2); Estimated GFR (Non-African Ame >60 (>=60 mL/min/1.73m^2); Glucose 111 mg/dL (74-106); Potassium 3.5 mmol/L (3.5-5.1); Sodium 139 mmol/L (136-145)
[2025-06-18] MEDS: PANTOPRAZOLE SODIUM 40 MG TABLET.DR PO (09:36)
--- NOTE | 2025-06-18 11:15 | PM.HP ---
HPI H&P: HPI History of Present Illness Chief complaint: UTI Generalized Weakness Narrative: Mr. Zhao is a 65-year-old gentleman with a history of lymphoma. Patient also has hypertension,. Patient was diagnosed having UTI in the outpatient setting. Before starting antibiotic, the patient felt very weak and fell down. He was brought to the emergency room. He was found to have evidence of sepsis. Hide white count and temperature. Pressure peaked at 21.3. Patient denies any cough or congestion. No change in mental status. No head trauma. Urinary frequency reported. No hematuria. Opioid HPI Opioid Management Most Recent Pain and Opioid Data: Last Pain Assessment 06/17/25, 23:00 Last MAR Pain Assessment Today, :13 Last ORT Total Score 0 06/17/25, : Last ORT Risk Category Low Risk 06/17/25, 23: PFS PFSH Medical History (Updated 06/18/25 @ 11:18 by Seng Kaye MD) Depression ?F32.A - Depression, unspecified (ICD-10) Occasional tremors ?R25.1 - Tremor, unspecified (ICD-10) Lymphoma in remission ?C85.9A - Non-Hodgkin lymphoma, unspecified, in remission (ICD-10) Surgical History History of ankle surgery ?Z98.890 - Other specified postprocedural states (ICD-10) Family History (Updated 06/18/25 @ 00:48 by Beau Whitaker RN) Father Cancer of prostate Sister Cancer of breast, female Social History Highest level of school completed/degree received: some college, no degree Little interest or pleasure in doing things: not at all Feeling down, depressed, or hopeless: not at all Meds Home Medications and Allergies Home Medications ?Medication ?Instructions ?Recorded ?Confirmed ?Type omeprazole 40 mg capsule,delayed 40 mg PO DAILY 09/09/24 06/17/25 History release propranolol 20 mg tablet 20 mg PO Q12H 09/09/24 06/17/25 History trazodone 150 mg tablet 150 mg PO DAILY 09/09/24 06/17/25 History hydroxyzine HCl 25 mg tablet 25 mg PO BID PRN anxiety 12/11/24 06/17/25 History melatonin 3 mg capsule 6 mg PO DAILY sleep 12/11/24 06/18/25 History fluoxetine 40 mg capsule 80 mg PO DAILY 06/18/25 06/18/25 History fluticasone propionate 50 2 spray intranasal DAILY PRN 06/18/25 06/18/25 History mcg/actuation nasal allergy symptoms spray,suspension (Flonase Allergy Relief) Allergies Allergy/AdvReac Type Severity Reaction Status Date / Time No Known Drug Allergies Allergy Verified 06/17/25 18:41 Exam Narrative Exam Narrative: [pt is awake and alert. oriented to place, time and person, morbidly obese HEENT: [place] conjunctiva and NL buccal mucosa Neck: Supple, no tenderness Endocrine: No Thyromegaly. Vascular: No JVD or carotid bruit. Lymphatic: No cervical lymphadenopathy. Chest: CTA no DTP. Heart RRR, no extra sound or murmur. Abd: Soft, no tenderness, no rebound and no rigidity. Increase abd girth therefore clinically I could not exclude the possibility of intra abd mass or organomegaly. LE: No cyanosis or clubbing, no varices or edema. Neuro: A A O. Nl speech, comprehension and attention. Nl and symetrical motor and tone examination through out. []] Constitutional Vital Signs, click to edit/add: Last Vital Signs Temp 97.8 F 06/18/25 07:46 Pulse 75 06/18/25 09:48 Resp 18 06/18/25 07:47 BP 111/62 06/18/25 07:46 Pulse Ox 96 06/18/25 07:46 O2 Del Method Nasal Cannula 06/18/25 07:46 O2 Flow Rate 2 06/18/25 07:46 Results Labs Labs: Short CBC 06/17/25 06/18/25 Range/Units 20:04 06:51 WBC 18.0 H 18.6 H (4.0-11.0) 10^3/uL Hgb 15.2 13.3 L (14.0-18.0) g/dL Hct 43.5 39.6 L (42.0-54.0) % Plt Count 199 190 (150-450) 10^3/uL BMP 06/17/25 06/18/25 20:04 06:51 Sodium 137 139 Potassium 4.3 3.5 Chloride 104 106 Carbon Dioxide 21.6 23.5 BUN 13.0 10.0 Creatinine 0.88 0.66 L Glucose 135 H 111 H Calcium 10.0 9.4 Urine 06/17/25 Range/Units 19:55 Urine Color Lt. yellow (YELLOW) Urine Clarity Cloudy A (CLEAR) Urine pH 8.0 (5.0-9.0) Ur Specific [place] 1.015 (1.005-1.025) Urine Protein Trace (NEG/TRACE) mg/dL Urine Glucose (UA) Negative (NEGATIVE) mg/dL Assessment and Plan Assessment and Plan (1) Sepsis: (2) UTI (urinary tract infection): (3) Lymphoma: Plan Sepsis present on admission UTI Please refer to initial sepsis evaluation and treatment completed in the emergency room according to sepsis guidelines including labs checked, cultures sent, initiation of antibiotic and IV fluid accordingly. Lactic is down to normal Cultures are pending. Given his history of lymphoma and bone marrow transplantation I started him on Primaxin potentially covering Pseudomonas and ESBL. DVT prophylax Oral Xarelto 10 mg daily History of lymphoma Patient is to follow-up with oncology team postdischarge Sleep apnea Patient's is to bring his CPAP machine. Chronic medical conditions not listed above, incidental findings seen on labs and imaging. These would need to be addressed. Could be addressed when time and condition are appropriate. Could be addressed in the outpatient setting by PCP collaboration with other needed outpatient providers. Urinary Catheter Management Urinary Catheter Management Urethral: Cath placed during this visit: yes Urethral indwelling: No Insertion date: 06/17/25 Insertion time: 21:23
[2025-06-18] MEDS: FLUOXETINE HCL 20 MG CAPSULE 80 MG PO (11:35)
[2025-06-18] MEDS: POTASSIUM CHLORIDE 10 MEQ ER TABLET 20 MEQ PO (11:35)
[2025-06-18] MEDS: RIVAROXABAN 10 MG TABLET PO (11:35)
[2025-06-18] MEDS: ONDANSETRON 4 MG RAPDIS TABLET PO (16:52)
[2025-06-18] MEDS: DOCUSATE SODIUM 100 MG CAPSULE PO (21:37)
[2025-06-18] MEDS: HYDROXYZINE HCL 25 MG TABLET PO (21:37)
[2025-06-18] MEDS: PROPRANOLOL HCL 20 MG TABLET 10 MG PO (21:38)
[2025-06-19] VITALS (49 sets, daily range): BP systolic 99–136; BP diastolic 44–70; PULSE 56–93; TEMP 36.4–37.1; O2SAT 92–97
[2025-06-19] MEDS: IMIPENEM/CILASTATIN SODIUM 1,000 MG in 0.9 % SODIUM CHLORIDE 250 ML 250 MG IV ×3 (01:53→16:36)
[2025-06-19] MEDS: PANTOPRAZOLE SODIUM 40 MG TABLET.DR PO (09:35)
[2025-06-19] MEDS: DOCUSATE SODIUM 100 MG CAPSULE PO (09:35)
[2025-06-19] MEDS: RIVAROXABAN 10 MG TABLET PO (09:35)
[2025-06-19] MEDS: FLUOXETINE HCL 20 MG CAPSULE 80 MG PO (09:35)
--- NOTE | 2025-06-19 09:39 | P.PN_ITS ---
Progress Note: Subjective Subjective Interval history: No new symptoms since yesterday. Exam Narrative Exam Narrative: [pt is awake and alert. oriented to place, time and person, morbidly obese HEENT: [place] conjunctiva and NL buccal mucosa Neck: Supple, no tenderness Endocrine: No Thyromegaly. Vascular: No JVD or carotid bruit. Lymphatic: No cervical lymphadenopathy. Chest: CTA no DTP. Heart RRR, no extra sound or murmur. Abd: Soft, no tenderness, no rebound and no rigidity. Increase abd girth therefore clinically I could not exclude the possibility of intra abd mass or organomegaly. LE: No cyanosis or clubbing, no varices or edema. Neuro: A A O. Nl speech, comprehension and attention. Nl and symetrical motor and tone examination through out. []] Constitutional Vital Signs, click to edit/add: Last Vital Signs Temp 98.0 F 06/19/25 07:53 Pulse 63 06/19/25 08:37 Resp 18 06/19/25 07:53 BP 114/68 06/19/25 07:53 Pulse Ox 92 L 06/19/25 07:53 O2 Del Method Room Air 06/19/25 07:53 O2 Flow Rate 2 06/18/25 07:46 Progress Note: A&P Assessment and Plan (1) Sepsis: (2) UTI (urinary tract infection): (3) Lymphoma: Plan Sepsis present on admission UTI Please refer to initial sepsis evaluation and treatment completed in the emergency room according to sepsis guidelines including labs checked, cultures sent, initiation of antibiotic and IV fluid accordingly. Lactic is down to normal Cultures are pending. Given his history of lymphoma and bone marrow transplantation I I would continue Primaxin potentially covering Pseudomonas and ESBL. DVT prophylax Oral Xarelto 10 mg daily History of lymphoma Patient is to follow-up with oncology team postdischarge Sleep apnea Patient's is to bring his CPAP machine. Chronic medical conditions not listed above, incidental findings seen on labs and imaging. These would need to be addressed. Could be addressed when time and condition are appropriate. Could be addressed in the outpatient setting by PCP collaboration with other needed outpatient providers. Urinary Catheter Management Urinary Catheter Management Urethral: Cath placed during this visit: yes Urethral indwelling: No Insertion date: 06/17/25 Insertion time: 21:23
[2025-06-19] MEDS: ACETAMINOPHEN 325 MG TABLET 650 MG PO (16:36)
[2025-06-19] MEDS: 0.9 % SODIUM CHLORIDE 250 ML 10 ML IV (16:36)
[2025-06-20] VITALS (19 sets, daily range): BP systolic 121–145; BP diastolic 52–81; PULSE 46–93; TEMP 36.4–36.8; O2SAT 92–97
[2025-06-20] MEDS: IMIPENEM/CILASTATIN SODIUM 1,000 MG in 0.9 % SODIUM CHLORIDE 250 ML 250 MG IV ×3 (01:12→16:42)
[2025-06-20 06:08] LABS: Hematocrit 37.6 % (42.0-54.0); Hemoglobin 12.4 g/dL (14.0-18.0); Mean Corpuscular HGB Conc 33.0 g/dL (29.9-35.2); Mean Corpuscular Hemoglobin 30.2 pg (25.9-34.0); Mean Corpuscular Volume 91.7 fL (80.0-94.0); Platelet Count 183 10^3/uL (150-450); Red Blood Count 4.10 10^6/uL (4.70-6.10); White Blood Count 10.5 10^3/uL (4.0-11.0)
[2025-06-20 06:23] LABS: Anion Gap 14.1; Blood Urea Nitrogen 9.0 mg/dL (7.0-18.0); Calcium 9.5 mg/dL (8.5-10.1); Carbon Dioxide 22.7 mmol/L (21.0-32.0); Chloride 109 mmol/L (98-107); Estimated GFR (African America >60 (>=60 mL/min/1.73m^2); Estimated GFR (Non-African Ame >60 (>=60 mL/min/1.73m^2); Glucose 117 mg/dL (74-106); Potassium 3.8 mmol/L (3.5-5.1); Sodium 142 mmol/L (136-145)
--- NOTE | 2025-06-20 07:45 | CM.NOTE ---
Rounds made with Dr. Kaye, discussed plan of care with pt. No discharge today. PT and OT will evaluate pt for discharge planning.
[2025-06-20] MEDS: FLUOXETINE HCL 20 MG CAPSULE 80 MG PO (08:10)
[2025-06-20] MEDS: PANTOPRAZOLE SODIUM 40 MG TABLET.DR PO (08:11)
[2025-06-20] MEDS: RIVAROXABAN 10 MG TABLET PO (08:11)
--- NOTE | 2025-06-20 08:38 | P.PN_ITS ---
Progress Note: Subjective Subjective Interval history: No new symptoms since yesterday. Feeling better. Improved subjective sense of weakness and fatigue. No abdominal pain. No chest pain. No cough or congestion Exam Narrative Exam Narrative: [pt is awake and alert. oriented to place, time and person, morbidly obese HEENT: [place] conjunctiva and NL buccal mucosa Neck: Supple, no tenderness Endocrine: No Thyromegaly. Vascular: No JVD or carotid bruit. Lymphatic: No cervical lymphadenopathy. Chest: CTA no DTP. Heart RRR, no extra sound or murmur. Abd: Soft, no tenderness, no rebound and no rigidity. Increase abd girth therefore clinically I could not exclude the possibility of intra abd mass or organomegaly. LE: No cyanosis or clubbing, no varices or edema. Neuro: A A O. Nl speech, comprehension and attention. Nl and symetrical motor and tone examination through out. []] Constitutional Vital Signs, click to edit/add: Last Vital Signs Temp 97.8 F 06/20/25 07:49 Pulse 58 L 06/20/25 08:00 Resp 16 06/20/25 07:49 BP 133/63 06/20/25 07:49 Pulse Ox 92 L 06/20/25 07:49 O2 Del Method Room Air 06/20/25 07:49 O2 Flow Rate 2 06/18/25 07:46 Progress Note: Objective Labs Labs: Short CBC 06/20/25 Range/Units 05:26 WBC 10.5 (4.0-11.0) 10^3/uL Hgb 12.4 L (14.0-18.0) g/dL Hct 37.6 L (42.0-54.0) % Plt Count 183 (150-450) 10^3/uL BMP 06/20/25 05:26 Sodium 142 Potassium 3.8 Chloride 109 H Carbon Dioxide 22.7 BUN 9.0 Creatinine 0.61 L Glucose 117 H Calcium 9.5 Progress Note: A&P Assessment and Plan (1) Sepsis: (2) UTI (urinary tract infection): (3) Lymphoma: Plan Sepsis present on admission, resolved. White count was down to UTI. Urine cultures growing Citrobacter. Blood cultures pending Please refer to initial sepsis evaluation and treatment completed in the emergency room according to sepsis guidelines including labs checked, cultures sent, initiation of antibiotic and IV fluid accordingly. Lactic is down to normal Blood culture is pending. Given his history of lymphoma and bone marrow transplantation I I would continue Primaxin potentially covering ESBL. DVT prophylax Oral Xarelto 10 mg daily History of lymphoma Patient is to follow-up with oncology team postdischarge Sleep apnea Patient's is to bring his CPAP machine. Chronic medical conditions not listed above, incidental findings seen on labs and imaging. These would need to be addressed. Could be addressed when time and condition are appropriate. Could be addressed in the outpatient setting by PCP collaboration with other needed outpatient providers. I discussed his case with his on 06/19. I gave her update on his condition, status and treatment plan. I answered all of her questions. is very appreciative of the care that Beau is receiving here at [place]. Urinary Catheter Management Urinary Catheter Management Urethral: Cath placed during this visit: yes Urethral indwelling: No Insertion date: 06/17/25 Insertion time: 21:23
--- NOTE | 2025-06-20 14:36 | SWNOTE1 ---
Important Message from [employer] reviewed and discussed with patient. Pt. verbalized understanding and signed the form. Original given to patient and copy placed in patient?s chart.
--- NOTE | 2025-06-20 14:36 | SWNOTE1 ---
GAURI met with pt to discuss dc needs. Pt lives at home with his . He voiced they just recently moved back to this area. He voiced they were traveling and living out of the for awhile. He stated they just bought a house together. Pt stated he does have a walker, rollator, and a home cpap. Pt stated he does use his cpap every night for the past 10 years. He also stated he was going to outpt therapy. Pt does plan on returning home at discharge. SW did speak with pt about discharge plans. SW did let him know that HH was recommended. GAURI asked if he had ever had home health. He voiced that he just recently switched to [employer] and [facility]. [facility]. SW advised it would be similar to that, but a few more days of the week. Pt voiced he would like to get back in to outpt therapy and does not want home health. He stated he went right here in [place] and would like do that again. GAURI to update nurse and case management.
[2025-06-20] MEDS: HYDROXYZINE HCL 25 MG TABLET PO (18:09)
--- NOTE | 2025-06-20 19:33 | PC.NURSE ---
soft loose stool
[2025-06-20] MEDS: ACETAMINOPHEN 325 MG TABLET 650 MG PO (21:49)
--- NOTE | 2025-06-20 23:23 | PC.NURSE ---
soft loose stool
[2025-06-21] MEDS: IMIPENEM/CILASTATIN SODIUM 1,000 MG in 0.9 % SODIUM CHLORIDE 250 ML 200 MG IV (00:45)
[2025-06-21 01:49] VITALS: PULSE 57
[2025-06-21 03:44] VITALS: BP 121/63; PULSE 56; TEMP 36.6; O2SAT 97
[2025-06-21 03:52] VITALS: PULSE 57
[2025-06-21 06:00] VITALS: PULSE 56
[2025-06-21 08:00] VITALS: BP 110/50; PULSE 57; PULSE 67; TEMP 36.4; O2SAT 95
[2025-06-21] MEDS: IMIPENEM/CILASTATIN SODIUM 1,000 MG in 0.9 % SODIUM CHLORIDE 250 ML 250 MG IV (08:18)
[2025-06-21] MEDS: FLUOXETINE HCL 20 MG CAPSULE 80 MG PO (08:19)
[2025-06-21] MEDS: RIVAROXABAN 10 MG TABLET PO (08:19)
[2025-06-21] MEDS: 0.9 % SODIUM CHLORIDE 250 ML 10 ML IV (08:19)
[2025-06-21] MEDS: PANTOPRAZOLE SODIUM 40 MG TABLET.DR PO (08:19)
--- NOTE | 2025-06-21 09:30 | CM.NOTE ---
Rounds made with Dr. Kaye, Pt will discharge to home today on oral antibiotics. Pt given requisition for outpatient PT at discharge. Pt will f/u with PCP
[2025-06-21 09:56] VITALS: PULSE 67
--- NOTE | 2025-06-21 10:16 | CM.NOTE ---
Dr. Kaye given final urine culture result with susceptibility.
--- NOTE | 2025-06-21 10:45 | PM.DS1 ---
DS: Providers Provider Date of admission: 06/17/25 22:38 Primary care physician: Non-Staff Physician, Consults: 06/20/25 08:36 Physical Therapy Eval and Treat Routine Reason for consultation: Weakness DS: Diagnosis Discharge Diagnosis (1) Sepsis: (2) UTI (urinary tract infection): (3) Lymphoma: Plan As listed above and below and others that are not listed DS: Summary Hospital Course Hospital Course: Mr. Zhao is a 65-year-old gentleman with a history of lymphoma. He came in not feeling well. The frequent urination and the lower abdominal discomfort. Sepsis present on admission, resolved. White count was down to normal UTI. Urine cultures growing Citrobacter. Blood cultures negative Please refer to initial sepsis evaluation and treatment completed in the emergency room according to sepsis guidelines including labs checked, cultures sent, initiation of antibiotic and IV fluid accordingly. Lactic is down to normal Blood culture is negative. Given his history of lymphoma and bone marrow transplantation Patient completed the course of intravenous Primaxin. Urine culture came back positive for Citrobacter which is pansensitive. Patient will be discharged home on oral cefuroxime 500 mg twice daily for 10 days. DVT prophylax Oral Xarelto 10 mg daily History of lymphoma Patient is to follow-up with oncology team postdischarge Sleep apnea Patient's is to bring his CPAP machine. Chronic medical conditions not listed above, incidental findings seen on labs and imaging. These would need to be addressed. Could be addressed when time and condition are appropriate. Could be addressed in the outpatient setting by PCP collaboration with other needed outpatient providers. I discussed his case with his on 06/19 and today. I gave her update on his condition, status and treatment plan. I answered all of her questions. is very appreciative of the care that Beau is receiving here at [facility]. Patient has multiple medical issues as listed above and others that are not listed. All appear to be stable. I do not have any clear or strong clinical justification to extend inpatient hospitalization. Patient however will require close and frequent monitoring as well as additional work-up, investigation and therapeutic intervention that could take place from this point on post discharge. That is to prevent relapse, decompensation, rehospitalization and other medical implications. I instructed patient to ask her primary care doctor to obtain [facility] record entirely to address abnormalities seen on labs and imaging that I have and have not addressed during this hospitalization, follow-up on pending blood work, imaging and pathology is if available and to follow-up on needed medical care in the outpatient setting. Time Spent with Patient Time attestation: Total time spent providing and/or coordinating discharge services: Exam Constitutional Vital Signs, click to edit/add: Last Vital Signs Temp 97.5 F L 06/21/25 08:00 Pulse 67 06/21/25 09:56 Resp 18 06/21/25 08:00 BP 110/50 06/21/25 08:00 Pulse Ox 95 06/21/25 08:00 O2 Del Method Room Air 06/21/25 08:00 O2 Flow Rate 2 06/18/25 07:46 DS: Data Data Completed and Pending Labs on day of discharge: Preliminary micro results at discharge 06/17/25 21:23 Blood Culture Result 2 - Preliminary Blood NO GROWTH AT 36-48 HOURS. FINAL TO FOLLOW. 06/17/25 21:15 Blood Culture Result 1 - Preliminary Blood NO GROWTH AT 36-48 HOURS. FINAL TO FOLLOW. Discharge Plan Discharge Disposition: Home, Self-Care Discharge Medications: New cefuroxime axetil 500 mg tablet 500 mg PO BID 10 Days Qty: 20 0RF Continued fluticasone propionate [Flonase Allergy Relief] 50 mcg/actuation spray,suspension 2 spray intranasal DAILY PRN (Reason: allergy symptoms) Rx Instructions: administer into each nostril fluoxetine 40 mg capsule 80 mg PO DAILY omeprazole 40 mg capsule,delayed release(DR/EC) 40 mg PO DAILY melatonin 3 mg capsule 6 mg PO DAILY hydroxyzine HCl 25 mg tablet 25 mg PO BID PRN (Reason: anxiety) Changed trazodone 150 mg tablet 150 mg PO HS Qty: 0 0RF Discontinued propranolol 20 mg tablet 20 mg PO Q12H Print Language: Japanese Activity Restrictions/Additional Instructions: I may not have addressed or treated all of your medical illnesses or the abnormal blood work or imaging studies during this hospitalization. Please ask your primary care provider to obtain [facility] records entirely to follow up on all of the abnormal physical, laboratory, and imaging findings that I have not addressed. Please return back to the emergency room or seek medical attention if your symptoms worsen or return. Discharging you from [facility] does not mean that your medical care ends here and now. You may still need additional monitoring, work up, investigation, and treatment plan to be handled from this point on by out patient providers including your primary care provider and specialists. For any medication question, please contact your retail pharmacist or your primary care provider. Thank you. Forms: Portal Instructions Follow Up Appointments: 06/29 @ 1:15pm with Dr. Gan [address] [facility] [phone]
--- NOTE | 2025-06-21 10:57 | CM.NOTE ---
Pt given outpatient lab requisition for outpatient PT. Pt verbalizes understanding need to call and schedule.
[2025-06-21] MEDS: ACETAMINOPHEN 325 MG TABLET 650 MG PO (11:02)
--- NOTE | 2025-06-22 14:02 | CM.DCFOLLOWU ---
1st attempt 06/22/25, no answer
--- NOTE | 2025-06-22 14:11 | CM.DCFOLLOWU ---
Person spoke with:patient How are you feeling?well How is your pain?none Did you understand your discharge instructions?yes Do you have any questions about your discharge instructions?no Were you given any prescriptions at discharge?yes Were you able to get your prescriptions filled?yes Do you understand how to take your medications as ordered?yes Do you have any questions about your follow up appointment and do you plan to keep your follow up appointment? no questions, reviewed follow up appoitment Is there anything else that you would like to discuss? no Questions/Comments/Concerns/Other:none
== END 2025-06-21 12:12 | disposition home or self-care (01) | DRG 872 ==
LOC: ER 21:36 → MS 22:57
PROVIDERS: Admitting Provider Internal Medicine; Emergency Provider Internal Medicine; Visit Provider Internal Medicine
DX: A41.59 Other Gram-negative sepsis (principal); N39.0 Urinary tract infection, site not specified; C85.9A Non-Hodgkin lymphoma, unspecified, in remission; Z68.43 Body mass index [BMI] 50.0-59.9, adult; Z79.899 Other long term (current) drug therapy; F32.A Depression, unspecified; E66.01 Morbid (severe) obesity due to excess calories; I10 Essential (primary) hypertension; G47.30 Sleep apnea, unspecified; R25.1 Tremor, unspecified
CPT/HCPCS: 36415; 51702; 80048; 81001; 83605; 85007; 85025; 85027; 87040; 87086; 87088; 87186; 93005; 96365; 97161; 97530; 99285; J0696; J0743; Q0162; Q0177

== ENCOUNTER 2025-07-07 08:48 | Outpatient (OUT) | payer MEDICARE, SELFPAY ==
--- NOTE | 2025-07-07 09:11 | CT_ITS ---
The [address] [address] Patient Name: GERALDINE BUSTILLO MRN: [id number] date: 1960 Sex: M Assigned Patient Location: CT Current Patient Location: CT Accession/Order Number: [id number] Exam Date: 07/07/2025 10:25 Report Date: 07/07/2025 11:20 At the request of: JOE HAQ MD Procedure: CT abdomen pelvis w con CT ABDOMEN AND PELVIS WITH CONTRAST COMPARISON: 12/11/2024 CLINICAL DATA: Left lower quadrant pain and nausea. Abdominal wall hernia. Spiral images were obtained through the abdomen and pelvis following oral and 100 mL of Omnipaque 300. This CT exam was performed using one or more following dose reduction techniques: Automated exposure control, adjustment of the mA and/or kV according to patient size, or use of iterative reconstruction technique. Limited cuts through the lung bases show no contributory pulmonary findings. No calcified gallstones are identified. No intrahepatic masses are seen. The spleen, pancreas and adrenal glands show no acute findings. There are symmetric renal nephrograms, without hydronephrosis. A small left renal cyst is again visualized. A 6 mm upper pole right renal stone is again seen. The abdominal aorta is normal caliber. There is minor plaque at the aorta, iliac and some of the visceral arteries. There are tiny abdominal lymph nodes. There is subtle hazy density of the root of the mesentery. There is no ascites. There is mild diastases of the rectus muscles however no ventral hernias are noted. There is, however a portion of the left lateral abdominal wall which is not included due to body size. The small bowel loops are normal caliber. Stool is present along the ascending and transverse colon. The descending colon is underdistended. Degenerative changes are seen at the spine with associated stenosis. Images through the pelvis show no appendiceal information. There are normal caliber small bowel loops. The distal colon contains a trace amount of fluid though is otherwise underdistended with apparent wall thickening. No diverticular disease is noted. The prostate is slightly prominent. There is a poorly distended of the urinary bladder and wall thickening is seen. There are few small benign appearing inguinal lymph nodes. No ascites is identified. CT/CT abdomen pelvis w con IMPRESSION: LEFT RENAL CYST AND RIGHT RENAL STONE. NO BOWEL OR URINARY TRACT OBSTRUCTION. POSSIBLE MINOR MESENTERIC PANNICULITIS. UNDER DISTENDED URINARY BLADDER AND DISTAL COLON WITH APPARENT WALL THICKENING. NO ACUTE FINDINGS. Impression dictated by: Angelika De Jesus M.D. 07/07/2025 11:20 AM Dictation Location: [employer] Electronically authenticated by: [id number] Date: 07/07/2025 11:20
[2025-07-07 11:29] LABS: Glucose Urine UA NEGATIVE (NEGATIVE)
[2025-07-07 12:37] LABS: Cast Seen? NONE SEEN #/LPF (NONE SEEN); Crystals Seen? None Seen #/HPF (None Seen)
== END 2025-07-07 08:49 | disposition home or self-care (01) ==
PROVIDERS: PCP Family Medicine; Visit Provider Family Medicine
DX: K43.9 Ventral hernia without obstruction or gangrene (principal); N39.0 Urinary tract infection, site not specified; N28.1 Cyst of kidney, acquired
CPT/HCPCS: 74177; 81001; 87086; Q9967